=== PATIENT | male | born 1940 | race Caucasian/White ===

== ENCOUNTER 2018-01-29 10:33 | Inpatient (IN) | payer OTHER ==
[~2018-01-29] VITALS: Ht 188 cm; Wt 74.4 kg
[2018-01-29 10:36] VITALS: Ht 188 cm; Wt 74.4 kg
[2018-01-29 11:25] LABS: BASOPHIL % 0.4 % (0-2); PLATELET COUNT 154 x10^3mcL (130-400)
[2018-01-29 11:26] LABS: RED CELL DISTRIBUTION WIDTH 15.3 % (11.5-14.5)
[2018-01-29 12:00] LABS: CALCIUM 8.9 mg/dL (8.5-10.1); CARBON DIOXIDE 28.3 mmol/L (21-32); CHLORIDE SERUM 105 mmol/L (98-107); CREATININE SERUM 0.9 mg/dL (0.7-1.3); GLUCOSE SERUM 105 mg/dL (74-106); POTASSIUM SERUM 4.8 mmol/L (3.5-5.1); SODIUM SERUM 140 mmol/L (136-145)
[2018-01-29] MEDS ORDERED: TRAMADOL HCL50 MG PO (13:04)
[2018-01-29] MEDS ORDERED: MASON NATURAL1000 IU PO (13:04)
[2018-01-29] MEDS ORDERED: FLUDROCORTISON0.1 MG PO (13:04)
[2018-01-29] MEDS ORDERED: VITAMIN B121000 MCG PO (13:04)
[2018-01-29] MEDS ORDERED: PYR50 PO (13:04)
[2018-01-29] MEDS ORDERED: XTANDI40 M1 PO (13:05)
[2018-01-29] MEDS ORDERED: MECLIZINE HYDRO25 M1 PO (13:05)
[2018-01-29] MEDS ORDERED: CALCITRIOL0.5 MCG (13:05)
[2018-01-29] MEDS ORDERED: MEGL PO (13:05)
[2018-01-29] MEDS ORDERED: PROA PO (13:05)
[2018-01-29 16:11] VITALS: BP 133/87
[2018-01-29] MEDS ORDERED: OYSTER SHELL CA1 T11 PO (16:55)
[2018-01-29 21:20] VITALS: BP 94/57
[2018-01-30 00:45] LABS: UA SPECIFIC GRAVITY >=1.030 (1.005-1.035); microscopic required? YES; urine erythrocyte 3+ (NEGATIVE)
[2018-01-30 05:20] VITALS: BP 117/68
[2018-01-30 07:28] LABS: CALCIUM 8.5 mg/dL (8.5-10.1); CARBON DIOXIDE 22.4 mmol/L (21-32); CHLORIDE SERUM 105 mmol/L (98-107); CREATININE SERUM 0.9 mg/dL (0.7-1.3); GLUCOSE SERUM 115 mg/dL (74-106); POTASSIUM SERUM 4.2 mmol/L (3.5-5.1); SODIUM SERUM 136 mmol/L (136-145)
[2018-01-30 07:33] LABS: BASOPHIL % 0.1 % (0-2); PLATELET COUNT 124 x10^3mcL (130-400); RED CELL DISTRIBUTION WIDTH 14.9 % (11.5-14.5)
[2018-01-30 09:33] VITALS: BP 107/64
[2018-01-30 16:29] VITALS: BP 144/88
[2018-01-30 17:35] VITALS: BP 116/69
[2018-01-30 18:00] VITALS: BP 107/63
[2018-01-30 21:26] VITALS: BP 105/56
[2018-01-31 05:52] VITALS: BP 100/60
[2018-01-31 06:23] LABS: CALCIUM 8.1 mg/dL (8.5-10.1); CARBON DIOXIDE 25.6 mmol/L (21-32); CHLORIDE SERUM 105 mmol/L (98-107); CREATININE SERUM 0.9 mg/dL (0.7-1.3); GLUCOSE SERUM 128 mg/dL (74-106); POTASSIUM SERUM 4.1 mmol/L (3.5-5.1); SODIUM SERUM 135 mmol/L (136-145)
[2018-01-31 06:39] LABS: BASOPHIL % 0.3 % (0-2); PLATELET COUNT 128 x10^3mcL (130-400); RED CELL DISTRIBUTION WIDTH 14.9 % (11.5-14.5)
[2018-01-31 09:06] VITALS: BP 97/49
[2018-01-31 17:16] VITALS: BP 118/61
[2018-01-31 18:16] LABS: BASOPHIL % 0.4 % (0-2); PLATELET COUNT 146 x10^3mcL (130-400)
[2018-01-31 18:19] LABS: RED CELL DISTRIBUTION WIDTH 15.3 % (11.5-14.5)
[2018-01-31 20:11] VITALS: BP 101/59
[2018-02-01 05:23] VITALS: BP 128/70
[2018-02-01 06:38] LABS: CALCIUM 8.3 mg/dL (8.5-10.1); CARBON DIOXIDE 25.2 mmol/L (21-32); CHLORIDE SERUM 106 mmol/L (98-107); CREATININE SERUM 0.8 mg/dL (0.7-1.3); GLUCOSE SERUM 104 mg/dL (74-106); POTASSIUM SERUM 4.3 mmol/L (3.5-5.1); SODIUM SERUM 139 mmol/L (136-145)
[2018-02-01 06:41] LABS: BASOPHIL % 0.3 % (0-2); PLATELET COUNT 147 x10^3mcL (130-400)
[2018-02-01 09:19] VITALS: BP 105/59
[2018-02-01 17:24] VITALS: BP 115/63
[2018-02-01 17:30] VITALS: BP 115/63
== END 2018-02-01 19:33 | DRG 481 ==
LOC: ED 10:33 → MU 12:58
PROVIDERS: Emergency Medicine; Internal Medicine Pulmonary Disease; Neuromusculoskeletal Medicine, Sports Medicine
PROC: 0QS704Z Reposition Left Upper Femur with Internal Fixation Device, Open Approach (ICD-10-PCS; principal; 2018-01-30 13:00)
PROC: 30233N1 Transfusion of Nonautologous Red Blood Cells into Peripheral Vein, Percutaneous Approach (ICD-10-PCS; 2018-01-31)
DX: S72.142A Displaced intertrochanteric fracture of left femur, initial encounter for closed fracture (principal); D62 Acute posthemorrhagic anemia; M16.11 Unilateral primary osteoarthritis, right hip; I10 Essential (primary) hypertension; D64.9 Anemia, unspecified; Z68.21 Body mass index [BMI] 21.0-21.9, adult; Z95.0 Presence of cardiac pacemaker; Z85.46 Personal history of malignant neoplasm of prostate; W01.0XXA Fall on same level from slipping, tripping and stumbling without subsequent striking against object, initial encounter; Y92.009 Unspecified place in unspecified non-institutional (private) residence as the place of occurrence of the external cause
CPT/HCPCS: 97110-GP; 97116-GP; 97530-GP; 97535-GP; C1713; J0690; J1644; J2270; J2405; J2704; J3010; J3490; J7050; J7120; P9016; Q0092

== ENCOUNTER 2018-02-23 09:16 | Inpatient (IN) | payer OTHER ==
[~2018-02-23] VITALS: Ht 188 cm; Wt 74.5 kg
[~2018-02-23 09:16] MED LIST: CALCITRIOL0.5 MCG; FLUDROCORTISON0.1 MG PO; MASON NATURAL1000 IU PO; MECLIZINE HYDRO25 M1 PO; MEGL PO; OYSTER SHELL CA1 T11 PO; PROA PO; PYR50 PO; TRAMADOL HCL50 MG PO; VITAMIN B121000 MCG PO; XTANDI40 M1 PO
[2018-02-23 11:04] LABS: BASOPHIL % 0.6 % (0-2); PLATELET COUNT 284 x10^3mcL (130-400)
[2018-02-23 11:09] LABS: RED CELL DISTRIBUTION WIDTH 16.3 % (11.5-14.5)
[2018-02-23 11:12] LABS: CALCIUM 9.7 mg/dL (8.5-10.1); CARBON DIOXIDE 30.3 mmol/L (21-32); CHLORIDE SERUM 99 mmol/L (98-107); CREATININE SERUM 1.1 mg/dL (0.7-1.3); GLUCOSE SERUM 164 mg/dL (74-106); POTASSIUM SERUM 4.1 mmol/L (3.5-5.1); SODIUM SERUM 138 mmol/L (136-145)
[2018-02-23 11:17] LABS: ALKALINE PHOSPHATASE 175 U/L (46-116); ALT/SGPT 16 U/L (16-63); AST/SGOT 17 U/L (15-37); TOTAL PROTEIN, SERUM 7.7 g/dL (6.4-8.2)
[2018-02-23 11:18] LABS: ALBUMIN 3.3 g/dL (3.4-5.0)
[2018-02-23] MEDS ORDERED: MOM PO (12:25)
[2018-02-23] MEDS ORDERED: DUL10S RC (12:26)
[2018-02-23] MEDS ORDERED: TRAMADOL HCL50 MG PO (12:28)
[2018-02-23] MEDS ORDERED: NORCO1 TA2 PO (12:28)
[2018-02-23] MEDS ORDERED: CYANOCOBALAMIN (12:30)
[2018-02-23] MEDS ORDERED: CHOLECALCIFEROL (12:31)
[2018-02-23] MEDS ORDERED: PROA PO (12:31)
[2018-02-23] MEDS ORDERED: XTANDI40 M1 PO (12:32)
[2018-02-23] MEDS ORDERED: MEGL (12:32)
[2018-02-23 13:49] VITALS: BP 142/85
[2018-02-23 16:17] VITALS: BP 165/86
[2018-02-23 17:15] VITALS: BP 150/103
[2018-02-23 17:25] VITALS: BP 138/96
[2018-02-23 19:20] VITALS: BP 142/88
[2018-02-23 23:55] VITALS: BP 110/67
[2018-02-24 03:20] VITALS: BP 95/53
[2018-02-24 05:20] LABS: BASOPHIL % 0.3 % (0-2); PLATELET COUNT 218 x10^3mcL (130-400)
[2018-02-24 05:22] LABS: RED CELL DISTRIBUTION WIDTH 16.3 % (11.5-14.5)
[2018-02-24 05:31] LABS: CALCIUM 8.6 mg/dL (8.5-10.1); CARBON DIOXIDE 25.2 mmol/L (21-32); CHLORIDE SERUM 104 mmol/L (98-107); CREATININE SERUM 1.1 mg/dL (0.7-1.3); GLUCOSE SERUM 118 mg/dL (74-106); POTASSIUM SERUM 3.9 mmol/L (3.5-5.1); SODIUM SERUM 137 mmol/L (136-145)
[2018-02-24 07:45] VITALS: BP 106/59
[2018-02-24 11:09] VITALS: BP 126/73
[2018-02-24 15:30] VITALS: BP 137/87
[2018-02-24 17:06] VITALS: BP 139/83
[2018-02-24 21:17] VITALS: BP 119/74
[2018-02-25 06:21] VITALS: BP 167/83
[2018-02-25 08:45] VITALS: BP 115/71
[2018-02-25 10:52] LABS: CALCIUM 8.4 mg/dL (8.5-10.1); CARBON DIOXIDE 26.1 mmol/L (21-32); CHLORIDE SERUM 109 mmol/L (98-107); CREATININE SERUM 0.7 mg/dL (0.7-1.3); GLUCOSE SERUM 104 mg/dL (74-106); POTASSIUM SERUM 4.1 mmol/L (3.5-5.1); SODIUM SERUM 142 mmol/L (136-145)
[2018-02-25 11:20] VITALS: BP 115/71
[2018-02-25 11:25] LABS: BASOPHIL % 0.3 % (0-2); PLATELET COUNT 175 x10^3mcL (130-400)
[2018-02-25 11:28] LABS: RED CELL DISTRIBUTION WIDTH 16.2 % (11.5-14.5)
[2018-02-25 12:40] VITALS: BP 127/78
[2018-03-03 14:54] VITALS: Ht 188 cm; Wt 74.5 kg
== END 2018-02-25 15:00 | disposition home health service (06) | DRG 391 ==
LOC: ED 09:16 → DU 12:26 → IC 12:26 → DU 13:23 → IC 17:38 → DU 02-24 16:48
PROVIDERS: Emergency Medicine; Internal Medicine; Internal Medicine Gastroenterology
PROC: 0D768ZZ Dilation of Stomach, Via Natural or Artificial Opening Endoscopic (ICD-10-PCS; principal; 2018-02-24 10:30)
DX: K31.84 Gastroparesis (principal); K29.71 Gastritis, unspecified, with bleeding; I47.2 Ventricular tachycardia; I48.91 Unspecified atrial fibrillation; I10 Essential (primary) hypertension; K20.9 Esophagitis, unspecified; K57.30 Diverticulosis of large intestine without perforation or abscess without bleeding; J44.9 Chronic obstructive pulmonary disease, unspecified; Z95.0 Presence of cardiac pacemaker; Z68.21 Body mass index [BMI] 21.0-21.9, adult; Z87.891 Personal history of nicotine dependence; Z85.46 Personal history of malignant neoplasm of prostate
CPT/HCPCS: 43235; 97116-GP; C9113; J1200; J1610; J2250; J2270; J2310; J2405; J2765; J3010; J3490; J7042; Q0092; Q0162; Q9966; Q9967